=== PATIENT | female | born 2005 | race African-American/Black ===

== ENCOUNTER 2023-10-15 13:40 | Inpatient (IN) | payer MEDICAID ==
[~2023-10-15] VITALS: Ht 152.4 cm; Wt 47.6 kg
[~2023-10-15 13:40] MED LIST: FLUO20CA36 PO
[2023-10-15] MEDS ORDERED: INFLUENZA VIRUS VACCINE QVS 2023-24 (6MO+)/PF 60 MCG/0.5 ML SYRINGE IM. ONE (16:30)
[2023-10-15 17:48] VITALS: BP 123/68; PULSE 72; RESP 18; TEMP 97.3; O2SAT 98
[2023-10-16 04:17] VITALS: BP 124/69; PULSE 78; RESP 18; TEMP 97.9
[2023-10-16 08:20] VITALS: BP 100/69; PULSE 89; RESP 16; TEMP 97.6; O2SAT 97
== END 2023-10-16 17:55 | disposition home or self-care (01) | DRG 754 ==
LOC: B3A 15:46
PROVIDERS: ADMIT Psychiatry & Neurology Psychiatry; ATTEND Psychiatry & Neurology Psychiatry
DX: F32.9 Major depressive disorder, single episode, unspecified (principal); R45.851 Suicidal ideations